=== PATIENT | female | born 1955 | race African-American/Black ===

== ENCOUNTER 2019-02-14 18:03 | Inpatient (IN) | payer OTHER ==
[2019-02-14 21:28] VITALS: BMI 35.0
--- NOTE | 2019-02-14 22:14 | HP ---
COWS - Scale Resting Pulse: 1= [place] 81-100 Sweatin= No chills or Flushing Restless Observation: 0= Sits Still Pupil Size: 0= Normal to Room Light Bone or Joint Aches: 4=Acute Joint/Muscle Pain Runny Nose/ Eye Tearin= Nasal Congestion GI Upset > 30mins: 2= Nausea/Diarrhea Tremor Observation: 0= None Yawning Observation: 0= None Anxiety or Irritability: 2=Irritable/Anxious Goose Flesh Skin: 0=Smooth Skin COWS Score: 10 CIWA Score - Admission Criteria OAS Guidelines: Admission for Medically Managed Detox: Requires at least one of the followin. CIWA greater than 12 2. Seizures within the past 24 hours 3. Delirium tremens within the past 24 hours 4. Hallucinations within the past 24 hours 5. Acute intervention needed for co occurring medical disorder 6. Acute intervention needed for co occurring psychiatric disorder 7. Severe withdrawal that cannot be handled at a lower level of care (continued vomiting, continued diarrhea, abnormal vital signs) requiring intravenous medication and/or fluids 8. Admission [facility] Chief Complaint: C/O WITHDRAWAL SX'S. SEEKING DETOX Allergies/Adverse Reactions: Allergies Allergy/AdvReac Type Severity Reaction Status Date / Time Penicillins Allergy Intermediate Itching Verified 02/14/19 21:23 History of Present Illness: 63 Y.O. FEMALE WITH HX/O OPIOID DEPENDENCE HERE FOR DETOX. CLIENT IS SELF REFERRED. LAST HERE 2014. REPORTS LONGEST CLEAN TIME 3 YEARS RELAPSING 1 YEAR AGO. PRESENTS TODAY WITH C/O WITHDRAWAL SX'S. COWS 10. DENIES HX/O DRUG OVERDOSE. DOMICILED, RETIRED, DENIES LEGALS Exam Limitations: No Limitations - Ebola screening Have you traveled outside of the country in the last 21 days: No Have you had contact with anyone from an Ebola affected area: No Have you been sick,other than usual withdrawal symptoms: No Do you have a fever: No - Review of Systems Constitutional: Chills, Changes in sleep EENT: reports: Nose Congestion, Dental Problems (MISSING TEETH) Respiratory: reports: No Symptoms reported Cardiac: reports: No Symptoms Reported GI: reports: Constipated, Nausea : reports: No Symptoms Reported Musculoskeletal: reports: Back Pain Integumentary: reports: No Symptoms Reported Neuro: reports: No Symptoms reported Endocrine: reports: No Symptoms Reported Hematology: reports: No Symptoms Reported Psychiatric: reports: Orientated x3, Anxious, Depressed (DENIES SI) Other Systems: Reviewed and Negative Patient History - Patient Medical History Hx Anemia: No Hx Asthma: Yes Hx Chronic Obstructive Pulmonary Disease (COPD): No Hx Cancer: No Hx Cardiac Disorders: No Hx Congestive Heart Failure: No Hx Hypertension: Yes Hx Hypercholesterolemia: No Hx Pacemaker: No HX Cerebrovascular Accident: No Hx Seizures: No Hx Dementia: No Hx Diabetes: No Hx Gastrointestinal Disorders: No Hx Liver Disease: No Hx Genitourinary Disorders: Yes (KIDNEY STONES) Hx Sexually Transmitted Disorders: No Hx Renal Disease (ESRD): No Hx Thyroid Disease: No Hx Human Immunodeficiency Virus (HIV): No Hx Hepatitis C: No Hx Depression: No Hx Suicide Attempt: No Hx Bipolar Disorder: No Hx Schizophrenia: No Other Medical History: DENIES - Patient Surgical History Past Surgical History: Yes Hx Neurologic Surgery: No Hx Cataract Extraction: No Hx Cardiac Surgery: No Hx Lung Surgery: No Hx Breast Surgery: Yes (LT CYST) Hx Breast Biopsy: No Hx Abdominal Surgery: No Hx Appendectomy: No Hx Cholecystectomy: No Hx Genitourinary Surgery: Yes (LITHOTRIPSY X 2) Hx Section: No Hx Orthopedic Surgery: No Hx Hysterectomy: Yes (PARTIAL) Other Surgical History: TONSILLECTOMY Anesthesia Reaction: No - PPD History Previous Implant?: Yes Documented Results: Negative w/o proof Implanted On Prior [facility] Admission?: Yes Date: 11/09/14 PPD to be Administered?: Yes - Reproductive History Patient : No (NEG UHCG) - Smoking Cessation Smoking history: Never smoked Have you smoked in the past 12 months: No Aproximately how many cigarettes per day: 0 Initiated information on smoking cessation: No - Substance & Tx. History Hx Alcohol Use: No Hx Substance Use: Yes Substance Use Type: Heroin Hx Substance Use Treatment: Yes ([facility]) - Substances abused Heroin Other (specify): SNIFF Frequency: Daily Amount used: 3-4 BAGS Age of first use: 59 Date of last use: 02/14/19 Family Disease History - Family Disease History Family Disease History: Other: Brother (ALCOHOLIC, CVA) Admission Physical Exam BHS - Vital Signs Vital Signs: Vital Signs - 24 hr 02/14/19 21:16 Temperature 98.2 F Pulse Rate 82 Respiratory 18 Rate Blood Pressure 130/78 - Physical General Appearance: Yes: Irritable, Anxious HEENTM: Yes: EOMI, Normocephalic, Normal Voice, AYDEN, Pharynx Normal, Other ( dentures top) Respiratory: Yes: Chest Non-Tender, Lungs Clear, Normal Breath Sounds, No Respiratory Distress, No Accessory Muscle Use Neck: Yes: No masses,lesions,Nodules, Supple, Trachea in good position Breast: Yes: Breast Exam Deferred Cardiology: Yes: Regular Rhythm, Regular Rate, S1, S2 Abdominal: Yes: Non Tender, Soft, Protuberent Genitourinary: Yes: Within Normal Limits Back: Yes: Normal Inspection Musculoskeletal: Yes: Gait Steady Extremities: Yes: Normal Range of Motion, Non-Tender, Tremors (felt) Neurological: Yes: Fully Oriented, Alert, Motor Strength 5/5 Integumentary: Yes: Pitting Edema (trace to ble) Lymphatic: Yes: Within Normal Limits - Diagnostic (1) Opioid dependence with withdrawal Current Visit: Yes Status: Acute (2) Depressed affect Current Visit: Yes Status: Suspected (3) Asthma Current Visit: Yes Status: Chronic Qualifiers: Asthma severity: mild Asthma persistence: intermittent Asthma complication type: unspecified Qualified Code(s): J45.20 - Mild intermittent asthma, uncomplicated (4) Essential hypertension Current Visit: Yes Status: Chronic Cleared for Admission S - Detox or Rehab [facility] Level of Care: Medically Managed Detox Regimen/Protocol: Methadone Claeared for Rehab Admission: No Breathalyzer - Breathalyzer Breathalyzer: 0 Urine Drug Screen - Test Device Lot number: [id number] Expiration date: 10/16/20 - Control Is test valid?: Yes - Results Drug screen NEGATIVE: No Urine drug screen results: FEN-Fentanyl, MOP-Opiates, BZO-Benzodiazepines Inpatient Rehab Admission - Rehab Decision to Admit Inpatient rehab admission?: No
[2019-02-14] MEDS ORDERED: MAG HYDROX/AL HYDROX/SIMETH 30 ML UNIT-DOSE CUP PO PRN (22:24)
[2019-02-14] MEDS ORDERED: guaiFENesin 200 MG/10 ML 10 ML UNIT-DOSE CUPS PO PRN (22:24)
[2019-02-14] MEDS ORDERED: BISMUTH SUBSALICYLATE 524 MG/30 ML UD PO PRN (22:24)
[2019-02-14] MEDS ORDERED: ACETAMINOPHEN 325 MG TABLET (FP) PO PRN (22:24)
[2019-02-14] MEDS ORDERED: DICYCLOMINE HCL 10 MG CAPSULE PO PRN (22:24)
[2019-02-14] MEDS ORDERED: MAGNESIUM CITRATE 300 ML BOTTLE PO PRN (22:24)
[2019-02-14] MEDS ORDERED: NALOXONE HCL 0.4 MG/ML VIAL IVPUSH PRN (22:24)
[2019-02-14] MEDS ORDERED: MAGNESIUM HYDROX 2400MG/30ML ORAL SUSPENSION 30 ML CUP PO PRN (22:24)
[2019-02-14] MEDS ORDERED: ONDANSETRON *ODT* 4 MG TABLET SL PRN (22:24)
[2019-02-14] MEDS ORDERED: cloNIDine HCL 0.1 MG TABLET PO PRN (22:24)
[2019-02-14] MEDS ORDERED: MENTHOL/PHENOL 1 EACH UD MM PRN (22:24)
[2019-02-14] MEDS ORDERED: P-EPHED 60MG/TRIPROLIDI 2.5MG TABLET PO PRN (22:24)
[2019-02-14] MEDS ORDERED: METHADONE HCL 10 MG TABLET (FOR DETOX USE ONLY) PO ONE (23:00)
[2019-02-15] MEDS ORDERED: METHADONE HCL 10 MG TABLET (FOR DETOX USE ONLY) PO ONE (01:27)
[2019-02-15] MEDS: MELATONIN 5 MG TABLETS PO PRN ×2 (01:39→22:58)
[2019-02-15 09:29] LABS: ALBUMIN 2.8 g/dl (3.4-5.0); BILIRUBIN,TOTAL 0.3 mg/dL (0.2-1); BLOOD UREA NITROGEN 17.7 mg/dL (7-18); CALCIUM 8.6 mg/dL (8.5-10.1); POTASSIUM 4.2 mmol/L (3.5-5.1); TOT PROT 6.5 g/dl (6.4-8.2)
[2019-02-15 09:33] LABS: HEMATOCRIT 32.9 % (32.4-45.2); HEMOGLOBIN 10.4 GM/dL (10.7-15.3); MCH 27.8 pg (25.7-33.7); MCHC 31.8 g/dl (32.0-36.0); MEAN CELL VOLUME 87.5 fl (80-96); MEAN PLT VOLUME 8.3 fl (7.5-11.1); RBC 3.76 M/mm3 (3.60-5.2); RDW 18.9 % (11.6-15.6); WHITE BLOOD COUNT 8.2 K/mm3 (4.0-10.0)
[2019-02-15] MEDS ORDERED: METHADONE HCL 5 MG TABLET (FOR DETOX USE ONLY) PO ONE (10:00)
[2019-02-15 10:03] LABS: PLATELET COUNT 259 K/MM3 (134-434)
[2019-02-15 10:26] LABS: EPI CELLS 1.8 /HPF (0-5/HPF); HYALINE CASTS 19 /lpf (0-8); PH,URINE 6.5 (5.0-8.0); URINE APPEARANCE CLOUDY; URINE BACTERIA 1424.1 /hpf (NEGATIVE); URINE BILIRUBIN NEGATIVE (NEGATIVE); URINE COLOR YELLOW; URINE GLUCOSE (UA) NEGATIVE (NEGATIVE); URINE KETONE NEGATIVE (NEGATIVE); URINE LEUK ESTERASE 2+ (NEGATIVE); URINE NITRITE POSITIVE (NEGATIVE); URINE PROTEIN TRACE (NEGATIVE); URINE RBC 6 /hpf (0-4); URINE UROBILINOGEN 0.2 mg/dL (0.2-1.0); URINE WBC 91 /hpf (0-5)
[2019-02-15] MEDS: BUDESONIDE/FORMETEROL FUMARATE 80/4.5 mcg INHALER IH SCH ×2 (10:41→23:00)
[2019-02-15] MEDS: PRENATAL VITAMINS W/ FOLIC ACID TABLET (FP) PO SCH (10:42)
--- NOTE | 2019-02-15 16:56 | PN ---
BHS COWS - Scale Resting Pulse: 1= [place] 81-100 Sweatin= Chills/Flushing Restless Observation: 3= Extraneous Movement Pupil Size: 0= Normal to Room Light Bone or Joint Aches: 2= Severe Diffuse Aches Runny Nose/ Eye Tearin= Runny Nose/Eyes GI Upset > 30mins: 2= Nausea/Diarrhea Tremor Observation of Outstretched Hands: 2= Slight Tremor Visible Yawning Observation: 0= None Anxiety or Irritability: 1=Feels Anxious/Irritable Goose Flesh Skin: 0=Smooth Skin COWS Score: 14 S Progress Note (SOAP) Subjective: Body ache Objective: 02/15/19 16:53 Last Vital Signs Temp Pulse Resp BP Pulse Ox 97.9 F 84 18 115/86 02/15/19 14:36 02/15/19 14:36 02/15/19 14:36 02/15/19 14:36 Laboratory Tests 02/15/19 02/15/19 02/15/19 07:30 07:30 07:30 WBC 8.2 RBC 3.76 Hgb 10.4 L Hct 32.9 MCV 87.5 MCH 27.8 MCHC 31.8 L RDW 18.9 H Plt Count 259 MPV 8.3 Sodium 146 H Potassium 4.2 Chloride 111 H Carbon Dioxide 33 H Anion Gap 2 L BUN 17.7 Creatinine 1.0 Est GFR (CKD-EPI)AfAm 69.92 Est GFR (CKD-EPI)NonAf 60.33 Random Glucose 102 Calcium 8.6 Total Bilirubin 0.3 AST 83 H ALT 26 Alkaline Phosphatase 102 Total Protein 6.5 Albumin 2.8 L Urine Color Urine Appearance Urine pH Ur Specific [place] Urine Protein Urine Glucose (UA) Urine Ketones Urine Blood Urine Nitrite Urine Bilirubin Urine Urobilinogen Ur Leukocyte Esterase Urine WBC (Auto) Urine RBC (Auto) Urine Casts (Auto) U Epithel Cells (Auto) Urine Bacteria (Auto) RPR Titer Nonreactive 02/15/19 08:40 WBC RBC Hgb Hct MCV MCH MCHC RDW Plt Count MPV Sodium Potassium Chloride Carbon Dioxide Anion Gap BUN Creatinine Est GFR (CKD-EPI)AfAm Est GFR (CKD-EPI)NonAf Random Glucose Calcium Total Bilirubin AST ALT Alkaline Phosphatase Total Protein Albumin Urine Color Yellow Urine Appearance Cloudy Urine pH 6.5 D Ur Specific [place] 1.019 Urine Protein Trace Urine Glucose (UA) Negative Urine Ketones Negative Urine Blood 1+ H Urine Nitrite Positive H Urine Bilirubin Negative Urine Urobilinogen 0.2 Ur Leukocyte Esterase 2+ H Urine WBC (Auto) 91 Urine RBC (Auto) 6 Urine Casts (Auto) 19 U Epithel Cells (Auto) 1.8 Urine Bacteria (Auto) 1424.1 RPR Titer Labs reviewed: UTI noted Assessment: 02/15/19 16:54 Withdrawal symptoms Noted with Acute UTI Plan: Continue detox Encouraged PO water intake Acute UTI, uncomplicated: send urine cx stat, start cipro 500mg bid x 3 days
[2019-02-15] MEDS: ACETAMINOPHEN 325 MG TABLET (FP) PO PRN (20:57)
[2019-02-15] MEDS ORDERED: CIPROFLOXACIN 500 MG TABLET (RESTRICTED TO ID) PO SCH (22:00)
[2019-02-15] MEDS: THIAMINE HCL 100 MG TABLET (FP) PO SCH (22:58)
--- NOTE | 2019-02-16 00:08 | EKG ---
Test Reason : Blood Pressure : / mmHG Vent. Rate : 081 BPM Atrial Rate : 081 BPM P-R Int : 156 ms QRS Dur : 084 ms QT Int : 406 ms P-R-T Axes : 039 -06 036 degrees QTc Int : 471 ms NORMAL SINUS RHYTHM NORMAL ECG WHEN COMPARED WITH ECG OF 08-FEB-2017 11:24, NO SIGNIFICANT CHANGE WAS FOUND Confirmed by MD Beny, Nate ([id number]) on 02/16/2019 12:08:01 AM Referred By: Karla Bob Confirmed By:Nate Swan MD
[2019-02-16] MEDS ORDERED: METHADONE HCL 10 MG TABLET (FOR DETOX USE ONLY) PO ONE (10:00)
[2019-02-16] MEDS ORDERED: METHADONE HCL 5 MG TABLET (FOR DETOX USE ONLY) PO ONE (10:00)
--- NOTE | 2019-02-16 10:16 | CONSULT ---
[facility] Psychiatric Consult - Data Date of interview: 02/16/19 (Self-referred) Admission source: Self-referred Identifying data: Ms Prery Byrne is a 63 years old Black female, mother of 3 children, retired as senior case specialist for the [employer], domiciled seeking detox treatment for opioid Substance Abuse History: Reports history of heroin use. refer to addiction conselor's summary for further information Medical History: Significant for hypertension, bronchial asthma, arthritis of back(L4), history of lithotripsy for kidney stones, removal of cyst from left breast, partial hysterectomy and tonsillectmy Psychiatric History: Patient denies history of previous psychiatric treatment. However reports that in the past 9 years, she has loss three love ones. Her father in 2009, her brother in 2014 and her mother in 2016. Told junior copywriter that on account of these losses, she has been feeling depressed and experiencing difficulty to sleep. Reports that she needs to seek counseling to address her grief Physical/Sexual Abuse/Trauma History: Denies history of emotional, physical or sexual abuse as well as DV relationship Additional Comment: Reports one recent arrest while at [facility]. Told junior copywriter she does not know what she did to get arrested. She said that she was intoxicated at the time and had a bottle of prescribed medication of narcotic in her purse. She said that she was taken to the precinct and released with a court date on 03/12/19 Mental Status Exam - Mental Status Exam Alert and Oriented to: Time, Place, Person Cognitive Function: Fair Patient Appearance: Well Groomed Mood: Anxious Affect: Appropriate Patient Behavior: Cooperative Speech Pattern: Clear Voice Loudness: Normal Thought Process: Intact, Goal Oriented Thought Disorder: Not Present Hallucinations: Denies Suicidal Ideation: Denies Homicidal Ideation: Denies Insight/Judgement: Poor Sleep: Poorly Appetite: Poor Muscle strength/Tone: Normal Gait/Station: Normal Psychiatric Findings - Problem List ([place] 1, 2,3) (1) Substance-induced anxiety disorder Current Visit: Yes Status: Acute (2) Substance-induced sleep disorder Current Visit: Yes Status: Acute (3) Grief reaction with prolonged bereavement Current Visit: Yes Status: Chronic (4) Opioid dependence with withdrawal Current Visit: Yes Status: Acute (5) Essential hypertension Current Visit: Yes Status: Chronic (6) Arthritis Current Visit: No Status: Acute (7) Kidney stones Current Visit: No Status: Acute (8) S/P hysterectomy Current Visit: No Status: Resolved (9) S/P tonsillectomy Current Visit: No Status: Resolved - Initial Treatment Plan Initial Treatment Plan: 1) Start Belsomra 10 mg po HS prn for insomnia. 2) Continue inpatient detoxification
[2019-02-16] MEDS: PRENATAL VITAMINS W/ FOLIC ACID TABLET (FP) PO SCH (10:33)
[2019-02-16] MEDS: BUDESONIDE/FORMETEROL FUMARATE 80/4.5 mcg INHALER IH SCH ×2 (10:34→22:19)
--- NOTE | 2019-02-16 13:25 | PN ---
BHS COWS - Scale Resting Pulse: 0= [place] 80 or Below Sweatin= Chills/Flushing Restless Observation: 0= Sits Still Pupil Size: 0= Normal to Room Light Bone or Joint Aches: 1= Mild Discomfort Runny Nose/ Eye Tearin= None GI Upset > 30mins: 0= None Tremor Observation of Outstretched Hands: 0= None Yawning Observation: 0= None Anxiety or Irritability: 0= None Goose Flesh Skin: 0=Smooth Skin COWS Score: 2 BHS Progress Note (SOAP) Subjective: ear clogged sweats Objective: 02/16/19 13:25 Vital Signs Temperature 97.3 F L 02/16/19 13:08 Pulse Rate 80 02/16/19 13:08 Respiratory Rate 18 02/16/19 13:08 Blood Pressure 133/85 02/16/19 13:08 O2 Sat by Pulse Oximetry (%) Laboratory Tests 02/14/19 02/15/19 02/15/19 22:02 07:30 07:30 WBC 8.2 RBC 3.76 Hgb 10.4 L Hct 32.9 MCV 87.5 MCH 27.8 MCHC 31.8 L RDW 18.9 H Plt Count 259 MPV 8.3 Sodium 146 H Potassium 4.2 Chloride 111 H Carbon Dioxide 33 H Anion Gap 2 L BUN 17.7 Creatinine 1.0 Est GFR (CKD-EPI)AfAm 69.92 Est GFR (CKD-EPI)NonAf 60.33 Random Glucose 102 Calcium 8.6 Total Bilirubin 0.3 AST 83 H ALT 26 Alkaline Phosphatase 102 Total Protein 6.5 Albumin 2.8 L Urine Color Urine Appearance Urine pH Ur Specific [place] Urine Protein Urine Glucose (UA) Urine Ketones Urine Blood Urine Nitrite Urine Bilirubin Urine Urobilinogen Ur Leukocyte Esterase Urine WBC (Auto) Urine RBC (Auto) Urine Casts (Auto) U Epithel Cells (Auto) Urine Bacteria (Auto) POC Urine HCG, Qual Negative RPR Titer 02/15/19 02/15/19 07:30 08:40 WBC RBC Hgb Hct MCV MCH MCHC RDW Plt Count MPV Sodium Potassium Chloride Carbon Dioxide Anion Gap BUN Creatinine Est GFR (CKD-EPI)AfAm Est GFR (CKD-EPI)NonAf Random Glucose Calcium Total Bilirubin AST ALT Alkaline Phosphatase Total Protein Albumin Urine Color Yellow Urine Appearance Cloudy Urine pH 6.5 D Ur Specific [place] 1.019 Urine Protein Trace Urine Glucose (UA) Negative Urine Ketones Negative Urine Blood 1+ H Urine Nitrite Positive H Urine Bilirubin Negative Urine Urobilinogen 0.2 Ur Leukocyte Esterase 2+ H Urine WBC (Auto) 91 Urine RBC (Auto) 6 Urine Casts (Auto) 19 U Epithel Cells (Auto) 1.8 Urine Bacteria (Auto) 1424.1 POC Urine HCG, Qual RPR Titer Nonreactive labs noted pending repeat u/s with c&s aaox3 lying in bed no acute distress Assessment: 02/16/19 13:25 mild withdrawal sx ear wax both ears noted Plan: continue detox increase fluids debrox ordered
[2019-02-16] MEDS: SUVOREXANT 10 MG TABLET PO PRN (22:19)
[2019-02-16] MEDS: THIAMINE HCL 100 MG TABLET (FP) PO SCH (22:19)
[2019-02-16] MEDS: METHOCARBAMOL 500 MG TABLET PO PRN (22:20)
[2019-02-16] MEDS: hydrOXYzine PAMOATE 25 MG CAPSULE (FP) PO PRN (22:20)
[2019-02-17] MEDS ORDERED: METHADONE HCL 5 MG TABLET (FOR DETOX USE ONLY) PO ONE (06:00)
[2019-02-17] MEDS: ACETAMINOPHEN 325 MG TABLET (FP) PO PRN (07:45)
[2019-02-17] MEDS: BUDESONIDE/FORMETEROL FUMARATE 80/4.5 mcg INHALER IH SCH ×2 (10:17→22:32)
[2019-02-17] MEDS: PRENATAL VITAMINS W/ FOLIC ACID TABLET (FP) PO SCH (10:18)
[2019-02-17] MEDS: CARBAMIDE PEROXIDE 6.5% OTIC 15 ML BOTTLE AU SCH ×2 (12:11→22:32)
--- NOTE | 2019-02-17 12:43 | PN ---
BHS COWS - Scale Resting Pulse: 0= [place] 80 or Below Sweatin= No chills or Flushing Restless Observation: 0= Sits Still Pupil Size: 0= Normal to Room Light Bone or Joint Aches: 1= Mild Discomfort Runny Nose/ Eye Tearin= None GI Upset > 30mins: 0= None Tremor Observation of Outstretched Hands: 0= None Yawning Observation: 0= None Anxiety or Irritability: 0= None Goose Flesh Skin: 0=Smooth Skin COWS Score: 1 S Progress Note (SOAP) Subjective: feeling fine little sweats Objective: 02/17/19 12:42 Vital Signs Temperature 98.2 F 02/17/19 09:38 Pulse Rate 76 02/17/19 09:38 Respiratory Rate 18 02/17/19 09:38 Blood Pressure 138/80 02/17/19 09:38 O2 Sat by Pulse Oximetry (%) aaox3 ambulating no acute distress Assessment: 02/17/19 12:42 mild to no withdrawal sx Plan: continue detox increase fluids d/c in am
[2019-02-17] MEDS: IBUPROFEN 400 MG TABLET (FP) PO PRN (20:20)
[2019-02-17] MEDS: hydrOXYzine PAMOATE 25 MG CAPSULE (FP) PO PRN (22:29)
[2019-02-17] MEDS: METHOCARBAMOL 500 MG TABLET PO PRN (22:29)
[2019-02-17] MEDS: SUVOREXANT 10 MG TABLET PO PRN (22:30)
[2019-02-17] MEDS: THIAMINE HCL 100 MG TABLET (FP) PO SCH (22:33)
[2019-02-18] MEDS ORDERED: METHADONE HCL 5 MG TABLET (FOR DETOX USE ONLY) PO SCH ×2 (06:00→10:00)
[2019-02-18] MEDS: IBUPROFEN 400 MG TABLET (FP) PO PRN (06:36)
[2019-02-18 09:39] VITALS: BP 135/88; PULSE 75; TEMP 97.8
[2019-02-18] MEDS: PRENATAL VITAMINS W/ FOLIC ACID TABLET (FP) PO SCH (10:10)
[2019-02-18] MEDS: BUDESONIDE/FORMETEROL FUMARATE 80/4.5 mcg INHALER IH SCH (10:10)
[2019-02-18] MEDS: CARBAMIDE PEROXIDE 6.5% OTIC 15 ML BOTTLE AU SCH (10:10)
--- NOTE | 2019-02-18 15:21 | DS ---
[facility] Detox Discharge Summary Admission Date: 02/14/19 Discharge Date: 02/18/19 - History Present History: Opioid Dependence Additional Comments: PT COMPLETED DETOX AND DISCHARGED TOD. ALERT O X 3. NAD. DENIES S/H/I. PT REPORTS HE HAS PRIMARY CARE WITH DR JUNG AT [facility] [place] [facility]. Pertinent Past History: PLEASE SEE DX BELOW - Physical Exam Results Vital Signs: Vital Signs Temperature 97.8 F 02/18/19 09:38 Pulse Rate 75 02/18/19 09:38 Respiratory Rate 18 02/18/19 09:38 Blood Pressure 135/88 02/18/19 09:38 O2 Sat by Pulse Oximetry (%) Pertinent Admission Physical Exam Findings: WITHDRAWAL SX Laboratory Tests 02/14/19 02/15/19 02/15/19 22:02 07:30 07:30 WBC 8.2 RBC 3.76 Hgb 10.4 L Hct 32.9 MCV 87.5 MCH 27.8 MCHC 31.8 L RDW 18.9 H Plt Count 259 MPV 8.3 Sodium 146 H Potassium 4.2 Chloride 111 H Carbon Dioxide 33 H Anion Gap 2 L BUN 17.7 Creatinine 1.0 Est GFR (CKD-EPI)AfAm 69.92 Est GFR (CKD-EPI)NonAf 60.33 Random Glucose 102 Calcium 8.6 Total Bilirubin 0.3 AST 83 H ALT 26 Alkaline Phosphatase 102 Total Protein 6.5 Albumin 2.8 L Urine Color Urine Appearance Urine pH Ur Specific [place] Urine Protein Urine Glucose (UA) Urine Ketones Urine Blood Urine Nitrite Urine Bilirubin Urine Urobilinogen Ur Leukocyte Esterase Urine WBC (Auto) Urine RBC (Auto) Urine Casts (Auto) U Epithel Cells (Auto) Urine Bacteria (Auto) POC Urine HCG, Qual Negative RPR Titer TB (QFT) Incubation TB Test (QFT) Nil TB Test (QFT) Mitogen TB Test (QFT) Antigen TB Test (QFT) TB Positive Criteria 02/15/19 02/15/19 02/15/19 07:30 07:30 08:40 WBC RBC Hgb Hct MCV MCH MCHC RDW Plt Count MPV Sodium Potassium Chloride Carbon Dioxide Anion Gap BUN Creatinine Est GFR (CKD-EPI)AfAm Est GFR (CKD-EPI)NonAf Random Glucose Calcium Total Bilirubin AST ALT Alkaline Phosphatase Total Protein Albumin Urine Color Yellow Urine Appearance Cloudy Urine pH 6.5 D Ur Specific [place] 1.019 Urine Protein Trace Urine Glucose (UA) Negative Urine Ketones Negative Urine Blood 1+ H Urine Nitrite Positive H Urine Bilirubin Negative Urine Urobilinogen 0.2 Ur Leukocyte Esterase 2+ H Urine WBC (Auto) 91 Urine RBC (Auto) 6 Urine Casts (Auto) 19 U Epithel Cells (Auto) 1.8 Urine Bacteria (Auto) 1424.1 POC Urine HCG, Qual RPR Titer Nonreactive TB (QFT) Incubation TB Test (QFT) Nil 0.18 TB Test (QFT) Mitogen >10.00 TB Test (QFT) Antigen 0.15 TB Test (QFT) Negative TB Positive Criteria - Treatment Hospital Course: Detox Protocol Followed, Detoxed Safely, Responded well, Discharged Condition Good, Rehab Referral Accepted Patient has Accepted a Rehab Referral to: [facility] - Medication Discharge Medications: Ambulatory Orders Benazepril HCl [Lotensin] 10 mg PO DAILY #0 tablet 04/23/13 Paroxetine HCl [Paxil -] 10 mg PO DAILY #0 tablet 04/23/13 Budesonide/Formeterol Fumarate [SYMBICORT 80/4.5mcg -] 1 inh PO BID 07/19/15 - Diagnosis (1) Arthritis Status: Chronic (2) Opioid dependence with withdrawal Status: Acute (3) Asthma Status: Chronic Qualifiers: Asthma severity: mild Asthma persistence: intermittent Asthma complication type: unspecified Qualified Code(s): J45.20 - Mild intermittent asthma, uncomplicated (4) Essential hypertension Status: Chronic - AMA Did Patient Leave Against Medical Advice: No
== END 2019-02-18 12:58 | disposition home or self-care (01) | DRG 897 ==
LOC: YASAS 18:03 → Y3N 22:45 → Y6N 02-15 00:59
PROVIDERS: ADMIT Surgery; ATTEND Surgery
PROC: HZ2ZZZZ Detoxification Services for Substance Abuse Treatment (ICD-10-PCS; principal; 2019-02-14)
DX: F11.23 Opioid dependence with withdrawal (principal); F13.20 Sedative, hypnotic or anxiolytic dependence, uncomplicated; F19.280 Other psychoactive substance dependence with psychoactive substance-induced anxiety disorder; F19.282 Other psychoactive substance dependence with psychoactive substance-induced sleep disorder; N39.0 Urinary tract infection, site not specified; F43.21 Adjustment disorder with depressed mood; R45.89 Other symptoms and signs involving emotional state; J45.20 Mild intermittent asthma, uncomplicated; I10 Essential (primary) hypertension; M12.9 Arthropathy, unspecified; Z87.442 Personal history of urinary calculi
CPT/HCPCS: 36415; 80053; 81003; 81025; 85027; 86480; 86593; 93005; 93010

== ENCOUNTER 2022-09-24 19:17 | Emergency (ER) | payer OTHER ==
[2022-09-24 20:04] VITALS: BP 119/82; PULSE 98; RESP 19; TEMP 97.9; BMI 36.0
[2022-09-24] MEDS ORDERED: ACETAMINOPHEN 1000 MG/100 ML BAG IVPB ONE (20:22)
[2022-09-24] MEDS ORDERED: ACETAMINOPHEN 325 MG TABLET (FP) PO ONE (20:54)
[2022-09-24] MEDS ORDERED: ACETAMINOPHEN 325 MG TABLET (FP) ONE (20:54)
[2022-09-24 21:17] LABS: BASO % 0.7 % (0-2.0); EOS % 3.5 % (0-4.5); HEMATOCRIT 35.8 % (32.4-45.2); HEMOGLOBIN 11.4 GM/dL (10.7-15.3); MCH 27.8 pg (25.7-33.7); MCHC 31.8 g/dl (32.0-36.0); MEAN CELL VOLUME 87.3 fl (80-96); MONO % 3.8 % (3.8-10.2); PLATELET COUNT 496 10^3/uL (134-434); RDW 17.5 % (11.6-15.6); WHITE BLOOD COUNT 13.8 K/mm3 (4.0-10.0)
[2022-09-24 21:44] LABS: CALCIUM 9.5 mg/dL (8.5-10.1)
[2022-09-24 21:45] LABS: BLOOD UREA NITROGEN 24.7 mg/dL (7-18)
[2022-09-24 21:48] LABS: CREATININE 1.6 mg/dL (0.55-1.3)
[2022-09-24 21:49] LABS: BILIRUBIN,TOTAL 0.5 mg/dL (0.2-1)
[2022-09-24 21:50] LABS: TOT PROT 8.5 g/dl (6.4-8.2)
== END 2022-09-24 23:58 | disposition home or self-care (01) ==
LOC: JER 19:17
DX: S80.212A Abrasion, left knee, initial encounter (principal); M25.562 Pain in left knee; W01.0XXA Fall on same level from slipping, tripping and stumbling without subsequent striking against object, initial encounter
CPT/HCPCS: 36415; 71045-TC-FY; 72170-TC-FY; 73562-TC-LT-FY; 73562-TC-RT-FY; 80053; 85025; 93005; 93010; 99285-25